=== PATIENT | female | born 1945 | race Caucasian/White ===

== ENCOUNTER 2022-07-01 10:30 | Day surgery (SDC) | payer OTHER ==
[~2022-07-01] VITALS: Ht 152.4 cm; Wt 68.0 kg
[2022-07-01 11:31] LABS: ANION GAP 8 (5-15); CALCIUM 9.1 mg/dL (8.4-11.0); CHLORIDE 108 mmol/L (98-107); CREATININE 0.62 mg/dL (0.55-1.30); GLUCOSE 98 mg/dL (70-99); POTASSIUM 4.1 mmol/L (3.5-5.1); UREA NITROGEN, BLOOD 20 mg/dL (8-21)
[2022-07-01 11:42] LABS: PROTHROMBIN TIME 9.8 SECS (9.5-12.5)
[2022-07-01] MEDS ORDERED: NITR50CA51 PO (11:57)
[2022-07-01] MEDS ORDERED: FLUT16SP16 NS (11:57)
[2022-07-01] MEDS ORDERED: LIP10 PO (11:57)
[2022-07-01] MEDS ORDERED: CALC500T87 PO (11:57)
[2022-07-01] MEDS ORDERED: L.RH1CAP PO (11:57)
[2022-07-01] MEDS ORDERED: MV-M1TAB19 PO (11:57)
[2022-07-01] MEDS ORDERED: CLOP75TA32 PO (11:57)
[2022-07-01] MEDS ORDERED: AREDS PO (12:04)
[2022-07-01] MEDS ORDERED: LIDOCAINE/EPI 1% 1:100000 20 ML VIAL INJ ONE (15:05)
[2022-07-01] MEDS ORDERED: BUPIVACAINE /EPINEPHRINE/PF 0.25% 30 ML VIAL INJ ONE (15:05)
[2022-07-01] MEDS ORDERED: MIDAZOLAM HCL 5 MG/5 ML VIAL IVP ONE (15:05)
[2022-07-01] MEDS ORDERED: NS IRRIG SOLN 1000 ML IR ONE (15:05)
[2022-07-01] MEDS ORDERED: LR 1,000 ML IV.SOLN IV ONE (15:05)
[2022-07-01] MEDS ORDERED: CLINDAMYCIN PHOSPHATE 60 ML TOPICAL SOLUTION TP ONE (15:05)
[2022-07-01] MEDS ORDERED: CEFAZOLIN 2 GM IVPB PREMIX 50 ML IV ONE (15:38)
[2022-07-01] MEDS ORDERED: fentaNYL CITRATE/PF 100 MCG/2 ML AMP IVP PRN (16:15)
[2022-07-01] MEDS ORDERED: ONDANSETRON HCL 4 MG/2 ML VIAL IVP PRN (16:15)
[2022-07-01] MEDS ORDERED: METOCLOPRAMIDE HCL 10 MG/2 ML VIAL IVP PRN (16:15)
[2022-07-01] MEDS: fentaNYL CITRATE/PF 100 MCG/2 ML AMP IVP PRN ×2 (17:08→17:33)
[2022-07-01] MEDS ORDERED: fentaNYL CITRATE/PF 100 MCG/2 ML AMP ONE (17:08)
[2022-07-01] MEDS ORDERED: KETOROLAC TROMETHAMINE 30 MG VIAL IVP PRN (18:00)
[2022-07-01 18:30] VITALS: BP_SYST 155
[2022-07-01 19:00] VITALS: BP_SYST 146
[2022-07-01] MEDS: 0.45% NACL 1,000 ML IV SCH (19:05)
[2022-07-01 20:00] VITALS: BP_SYST 133
[2022-07-01] MEDS: DOCUSATE SODIUM 100 MG CAPSULE PO SCH (21:32)
[2022-07-01] MEDS: ceFAZolin SODIUM 1 GM in D5W 50 ML IV SCH (21:33)
[2022-07-01] MEDS: HYDROcodone/ACETAMIN 5-325 MG TAB (NORCO/ VICODIN) PO PRN (21:42)
[2022-07-01 22:50] VITALS: BP_SYST 128
[2022-07-02] VITALS (8 sets, daily range): BP systolic 128–180
[2022-07-02] MEDS: ceFAZolin SODIUM 1 GM in D5W 50 ML IV SCH (05:37)
[2022-07-02] MEDS: HYDROcodone/ACETAMIN 5-325 MG TAB (NORCO/ VICODIN) PO PRN ×2 (05:44→18:16)
[2022-07-02] MEDS: 0.45% NACL 1,000 ML IV SCH ×2 (07:04→19:25)
[2022-07-02] MEDS: DOCUSATE SODIUM 100 MG CAPSULE PO SCH ×2 (09:53→20:49)
[2022-07-03] VITALS: BP_SYST 173
[2022-07-03 07:58] VITALS: BP_SYST 146
[2022-07-03] MEDS: DOCUSATE SODIUM 100 MG CAPSULE PO SCH (08:29)
[2022-07-03 08:31] VITALS: BP_SYST 146
[2022-07-03 10:51] VITALS: BP_SYST 136
[2022-07-03 14:00] VITALS: BP_SYST 124
== END 2022-07-03 10:55 | disposition home or self-care (01) ==
LOC: SDS 10:30 → SMU 18:50 → SDS 07-03 10:55
PROVIDERS: ATTEND Specialist
DX: N81.10 Cystocele, unspecified (principal); N81.6 Rectocele; N95.2 Postmenopausal atrophic vaginitis; F32.9 Major depressive disorder, single episode, unspecified; M81.0 Age-related osteoporosis without current pathological fracture; Z90.710 Acquired absence of both cervix and uterus; Z85.3 Personal history of malignant neoplasm of breast; Z90.89 Acquired absence of other organs; Z98.890 Other specified postprocedural states; Z20.822 Contact with and (suspected) exposure to COVID-19; Z79.899 Other long term (current) drug therapy
CPT/HCPCS: 57260; 80048; 85610; 87081; 36415; 88302; 87426; J3490; J0690 ×2; J2250; J3010; J7060; J7120; J1885